=== PATIENT | female | born 1990 | race Two or more races ===

== ENCOUNTER 2019-01-02 09:18 | Outpatient (CLI) | payer MEDICAID ==
[~2019-01-02] VITALS: Ht 175.3 cm; Wt 138.0 kg
== END 2019-01-02 14:04 | disposition home or self-care (01) ==
LOC: LDOP 09:18
PROVIDERS: ATTEND Obstetrics & Gynecology
DX: O24.113 Pre-existing type 2 diabetes mellitus, in pregnancy, third trimester (principal); Z3A.36 36 weeks gestation of pregnancy
CPT/HCPCS: 59025; 99201; G0463

== ENCOUNTER 2019-01-21 10:28 | Inpatient (IN) | payer MEDICAID ==
[~2019-01-21] VITALS: Ht 175.3 cm; Wt 139.0 kg
[2019-01-23 07:35] VITALS: BP 120/82
== END 2019-01-23 18:21 | disposition home or self-care (01) | DRG 787 ==
LOC: LDIP 10:28 → 2NW 19:57
PROVIDERS: ADMIT Obstetrics & Gynecology; ATTEND Obstetrics & Gynecology
PROC: 10D00Z1 Extraction of Products of Conception, Low, Open Approach (ICD-10-PCS; principal; 2019-01-21)
DX: O24.32 Unspecified pre-existing diabetes mellitus in childbirth (principal); O99.354 Diseases of the nervous system complicating childbirth; O34.211 Maternal care for low transverse scar from previous cesarean delivery; O99.284 Endocrine, nutritional and metabolic diseases complicating childbirth; O99.214 Obesity complicating childbirth; O69.81X0 Labor and delivery complicated by cord around neck, without compression, not applicable or unspecified; E66.01 Morbid (severe) obesity due to excess calories; E55.9 Vitamin D deficiency, unspecified; E03.9 Hypothyroidism, unspecified; O99.344 Other mental disorders complicating childbirth; G43.909 Migraine, unspecified, not intractable, without status migrainosus; Z83.3 Family history of diabetes mellitus; Z3A.39 39 weeks gestation of pregnancy; Z37.0 Single live birth; Z79.4 Long term (current) use of insulin; Z86.32 Personal history of gestational diabetes
CPT/HCPCS: 36415; J3490; 82947; 82962; 85025; 86850; 86900; G0378; J0171; J0690; J1885; J2274; J2405; J2370; J2590; J2765; J7120